=== PATIENT | female | born 1975 | race Caucasian/White ===

== ENCOUNTER 2023-09-09 12:50 | Emergency (ER) | payer OTHER, SELFPAY ==
[2023-09-09 12:55] VITALS: BP 152/93
[2023-09-09 13:16] LABS: % Basophils 1.3 % (0-2); % Eosinophils 3.3 % (0-6); % Immature Granulocytes 0.4 % (0-0.5); % Lymphocytes 21.8 % (20.5-51.1); % Neutrophils 64.2 % (42.2-75.2); Absolute Basophils 0.1 10^3/uL (0-0.2); Absolute Eosinophils 0.2 10^3/uL (0-0.7); Absolute Monocytes 0.4 10^3/uL (0.1-0.6); Absolute Neutrophils 3.1 10^3/uL (1.4-6.5); Hematocrit 37.2 % (37.0-47.0); Hemoglobin 13.3 g/dL (12.0-16.0); Mean Corp Hgb Conc. 35.8 g/dL (33.0-37.0); Mean Corpuscular Hgb 31.4 pg (27.0-31.0); Mean Corpuscular Volume 87.7 fL (81.0-99.0); Mean Platelet Volume 9.9 fL (7.4-10.4); Nucleated Red Blood Cells % 0 %; Platelet Count 168 10^3/uL (130-400); Red Blood Cell Count 4.24 10^6/uL (4.20-5.40); Red Cell Dist. Width 12.8 % (11.5-14.5); White Blood Cell Count 4.8 10^3/uL (4.8-10.8)
[2023-09-09 13:38] LABS: HCG, Serum Qualitative Screen Negative
[2023-09-09 13:49] LABS: ALT (SGPT) 36 U/L (0-35); AST (SGOT) 29 U/L (14-36); Albumin 3.9 g/dl (3.5-5.0); Alkaline Phosphatase 68 U/L (38-126); Blood Urea Nitrogen 8 mg/dl (7-17); Calcium 9.2 mg/dl (8.4-10.2); Carbon Dioxide 21 mmol/L (22-30); Chloride 104 mmol/L (98-107); Glucose 100 mg/dl (70-99); Sodium 136 mmol/L (135-145); Total Bilirubin 0.4 mg/dl (0.2-1.3); Total Protein 6.9 g/dl (6.3-8.2); eGFR > 60.00
--- NOTE | 2023-09-09 14:51 | ED.GENMED ---
History of Present Illness
General
Chief Complaint: Breathing Problem
Source: patient
Time Seen by Provider: 09/09/23 14:25
Travel History
Have you had any contact with someone who has COVID-19?: Yes
Comment: covid+
Do you have any symptoms of coronavirus? Fever > 100 degrees, chills, cough, shortness of breath, sore throat, loss of taste or smell, muscle aches, or headache?: Yes
Symptoms:: covid+
History of Present Illness
History of Present Illness:
48-year-old female presents to the emergency room complaining of sore throat, headache, loss of taste and smell, subjective shortness of breath. Patient began feeling unwell about 4 to 5 days ago. Patient had a fever yesterday but no fever today.
She does not feel your symptoms are improving. She called her family doctor because she measured her oxygen level with a home pulse oximeter and found it to be 88%.
Past History
Past History
ED Past Medical History: HTN and Other (Migraines)
ED Past Surgical History: Gynecological (D&C, tubal)
Social History
Tobacco: Non-smoker
Alcohol: None
Personal:
Living: with family
Phy Exam
Physical Exam
Physical Exam:
General: Awake, Alert, Oriented X3. No acute distress.
Vitals: unremarkable
Head: Atraumatic
Eyes: Pupils equal, EOMI
Throat: Airway intact, no exudates
Neck: Trachea midline
Lungs: Clear and equal b/l
Heart: Regular rate, no murmurs
Abd: Soft, Nontender, No pulsatile mass
Neuro: Nonfocal
Skin: Warm, dry, no rash
Extremities: pulses equal b/l, no edema
Scores
Heart Failure Risk
Heart Failure Risk Score: Not Applicable
Course
Orders/Labs/Results
Orders:
Orders
09/09/23 12:59
Electrocardiogram (*1) Urgent
Reason for Study: Other
Other Reason for Exam: Respiratory Distress
EKG- Treatment ONCE
09/09/23 13:04
Test Result ONCE
09/09/23 13:09
Complete Blood Count/With Diff Urgent
Comprehensive Metabolic Panel Urgent
HCG, Serum Qualitative Screen Urgent
Abnormal Lab Results
09/09/23
13:09
MCH 31.4 H pg
(27.0-31.0)
Absolute Lymphs (auto) 1.0 L 10^3/uL
(1.2-3.4)
Carbon Dioxide 21 L mmol/L
(22-30)
Creatinine 0.5 L mg/dL
(0.6-1.0)
Glucose 100 H mg/dl
(70-99)
ALT 36 H U/L
(0-35)
09/09/23 13:09
09/09/23 13:09
Vital Signs
Initial and Last Documented VS:
Initial Vital Signs
Temp Pulse Resp BP Pulse Ox
98.5 F 97 16 152/93 98
09/09/23 12:55 09/09/23 12:55 09/09/23 12:55 09/09/23 12:55 09/09/23 12:55
Last Documented Vital Signs
Temp Pulse Resp BP Pulse Ox
98.5 F 97 16 152/93 98
09/09/23 12:55 09/09/23 12:55 09/09/23 12:55 09/09/23 12:55 09/09/23 12:55
MDM/Problems Addressed
Differential Diagnosis Includes:
COVID, anemia pneumonitis
MDM/Problems Addressed:
Patient has normal pulse ox here. She looks comfortable. She is tolerating oral intake. She is still window for Paxlovid. We will initiate as patient has no contraindications.
*Pulse Oximetry
Patient hypoxic: no
*Critical Care Note
Total Time (30-74mins, 75-104mins- exclusive of procedures): Not Applicable
ED Attending Note
-
Portions of this chart may have been created with voice recognition software.� Occasional wrong word or��sound alike� substitutions may have occurred due to the inherent limitations of voice recognition software.
Discharge Plan
Departure
Patient Disposition: Home (Routine Discharge)
Date of Disposition: 09/09/23
Time of Disposition: 14:51
Patient with high blood pressure during this ER visit?: Yes
Condition: Good
Discharge Problem:
COVID-19
Instructions: COVID-19 (DC)
Prescriptions:
New
Paxlovid 300 mg (150 mg x 2)-100 mg tablets,dose pack
See Rx Instructions .ROUTE .COMPLEX Qty: 30 0RF
Rx Instructions:
take TWO 150 mg tablets of nirmatrelvir with ONE 100 mg tablet of ritonavir twice daily for 5 days
No Action
esomeprazole magnesium 40 mg Capsule,Delayed Release(Dr/Ec)
40 mg PO DAILY
Referrals:
Ken Roberts MD [Family Provider] -
Interventions
Interventions:
*Risk Screen - Suicide Last Done: 09/09/23 12:55
*General Assessment Last Done: 09/09/23 12:55
*Neglect/Abuse Screening Last Done: 09/09/23 12:55
== END 2023-09-09 15:09 | disposition home or self-care (01) ==
LOC: EMR 12:50
PROVIDERS: Student in an Organized Health Care Education/Training Program; EMERGENCY PHYSICIAN Emergency Medicine; FAMILY PHYSICIAN Internal Medicine
DX: U07.1 COVID-19 (principal); I10 Essential (primary) hypertension
CPT/HCPCS: 99284; 80053; 84703; 85025; 93005

== ENCOUNTER 2024-07-15 07:12 | Emergency (ER) | payer SELFPAY ==
[2024-07-15] VITALS (7 sets, daily range): BP systolic 120–149; BP diastolic 81–97; BMI 23.5
--- NOTE | 2024-07-15 07:50 | ED.GENMED ---
History of Present Illness
General
Chief Complaint: Abdominal Pain
Source: patient
Time Seen by Provider: 07/15/24 07:41
History of Present Illness
History of Present Illness:
49-year-old female presenting to the emergency department for evaluation of lower abdominal pain that began this morning around 5 AM described to be a constant aching/cramping sensation with intermittent sharper cramping episodes, worse within the
left lower quadrant but radiating across the lower abdomen and also stating she feels a little bit of pain in the rectal area accompanied with loose stool, blood intermixed with the stool, nausea and inability to eat or drink anything this morning.
Patient did not take anything for symptoms prior to arrival. Denies any history of similar she notes that she had a colonoscopy in either 2019 or 2020 and reports this was an unremarkable study. She does note a gluten sensitivity. Surgical
history noncontributory.
Past History
Past History
ED Past Medical History: Other (Migraines)
ED Past Surgical History: Gynecological (D&C, tubal)
Social History
Tobacco: Non-smoker
Alcohol: None
Drug: None
Personal:
Living: with family
Review of Systems
Review of Systems
All Other Systems: ROS reviewed and negative except as documented in HPI and ROS
Phy Exam
Physical Exam
Physical Exam:
GENERAL: Alert , tearful and appears uncomfortable. Patient attempted to have another bowel movement while in the ER and there were a few drops of blood within the toilet, no stool
EYE: clear conjunctiva b/l
HEAD: NCAT
ENT: o/p clr, mmm.
CARDIAC: Regular rate and rhythm .
LUNGS: Clear breath sounds bilaterally, no acute respiratory distress, no wheezes/rales/rhonchi
ABDOMEN: Soft, generalized tenderness across the lower abdomen but worse within the left lower quadrant, no r/g, no cvat, negative Alicia sign, no tenderness at McBurney's point
NEUROLOGICAL: Alert and oriented
SKIN: Warm and dry, skin intact.
MUSCULOSKELETAL: well perfused.
PSYCH: Normal and appropriate interaction.
Scores
Heart Failure Risk
Heart Failure Risk Score: Not Applicable
Heart Score for Chest Pain Patients
STEMI patient?: Not applicable
Withdrawal Assessment of Alcohol
Withdrawal Assessment Completed?: Not applicable
Course
Orders/Labs/Results
Orders:
Orders
07/15/24 07:49
CT Abd/pelvis W Iv Cont Urgent
Comment:
Reason For Exam: diffuse lower abd pain, worse LLQ
0.9% Sodium Chloride 1000 ml [Nss] 1,000 ml IV BOLUS
Morphine Sulfate 4 mg IV NOW STA
Ondansetron Injectable [Zofran] 4 mg IV NOW STA
Test Result ONCE
07/15/24 08:08
Type+Screen Urgent
Complete Blood Count/With Diff Urgent
Comprehensive Metabolic Panel Urgent
HCG, Serum Qualitative Screen Urgent
Lipase Urgent
07/15/24 08:59
ABO2 Routine
BBK Wristband Number:
Associate notified that ABO2 has been ordered: [id number]
Date: 07/15/24
Time: 09:01
Floating Derrick Operator ID: [id number]
07/15/24 10:01
HYDROmorphone [Dilaudid] 0.5 mg IV NOW STA
07/15/24 10:23
STOOL [C difficile Antigen & Toxins] Urgent
THONY Source: Feces/Stool
Specimen Description:
Stool Culture Urgent
THONY Source: Feces/Stool
Specimen Description:
Abnormal Lab Results
07/15/24
08:08
WBC 12.0 H 10^3/uL
(4.8-10.8)
MCHC 32.3 L g/dL
(33.0-37.0)
MPV 10.9 H fL
(7.4-10.4)
Absolute Neuts (auto) 10.2 H 10^3/uL
(1.4-6.5)
Absolute Lymphs (auto) 1.0 L 10^3/uL
(1.2-3.4)
Absolute Monos (auto) 0.7 H 10^3/uL
(0.1-0.6)
Neutrophils % 84.7 H %
(42.2-75.2)
Lymphocytes % 8.1 L %
(20.5-51.1)
Glucose 109 H mg/dl
(70-99)
AST 57 H U/L
(14-36)
ALT 79 H U/L
(0-35)
07/15/24 08:08
07/15/24 08:08
Vital Signs
Initial and Last Documented VS:
Initial Vital Signs
Temp Pulse Resp BP Pulse Ox
97.6 F 89 18 148/97 100
07/15/24 07:14 07/15/24 07:14 07/15/24 07:14 07/15/24 07:14 07/15/24 07:14
Last Documented Vital Signs
Temp Pulse Resp BP Pulse Ox
97.6 F 80 18 145/95 97
07/15/24 07:14 07/15/24 10:00 07/15/24 07:14 07/15/24 08:12 07/15/24 10:00
MDM/Problems Addressed
Differential Diagnosis Includes:
Diverticulitis, colitis, infectious diarrhea, IBD, pancreatitis, appendicitis
MDM/Problems Addressed:
49-year-old female presenting to the ER for evaluation of generalized abdominal cramping that started at 5 AM accompanied with diarrhea, small hematochezia and nausea. Currently appears uncomfortable. Abdominal exam reveals tenderness within the
left lower quadrant. Diverticulitis/diverticular bleed thought to be the most likely diagnosis. Labs and CT imaging ordered. Will treat symptoms with morphine for pain control, Zofran for nausea and IV fluids. Reassessment following
*Radiology
Radiology exam reviewed: radiology read reviewed
*Pulse Oximetry
Patient hypoxic: no
*Critical Care Note
Total Time (30-74mins, 75-104mins- exclusive of procedures): Not Applicable
Data Reviewed
Review of Other/Old Records Reveals: Radiology Studies
Source: patient
Comment
Comment:
Patient had refused morphine as she states it makes her feel loopy. On reevaluation she is still noting pain. I explained why I wanted to avoid Toradol given her reported bleeding. She is amenable to 1/2 mg of Dilaudid for pain control. Awaiting
CT scan results.
Patient Management
Social determinants of health affecting care: Living situation and Strong social support
Escalation/DeEscalation of care consider admission/obs:
Patient evaluated for an extended period of time following the half milligram of Dilaudid IV and she is feeling significantly improved. She was unfortunately unable to provide a stool sample prior to discharge. Patient will follow-up with primary
care provider for further evaluation. Aware of return precautions to the ER including worsening pain, fevers or any other concerns.
ED Attending Note
-
Portions of this chart may have been created with voice recognition software.� Occasional wrong word or��sound alike� substitutions may have occurred due to the inherent limitations of voice recognition software.
Discharge Plan
Departure
Patient Disposition: Home (Routine Discharge)
Date of Disposition: 07/15/24
Time of Disposition: 12:15
Patient with high blood pressure during this ER visit?: Yes
Discharge Problem:
Colitis
Instructions: Colitis (DC)
Prescriptions:
New
oxycodone 5 mg tablet
5 mg PO BID PRN (Reason: Pain) Qty: 6 0RF
ondansetron 4 mg tablet,disintegrating
4 mg PO TIDPRN PRN (Reason: nausea/vomiting) Qty: 10 0RF
No Action
esomeprazole magnesium 40 mg Capsule,Delayed Release(Dr/Ec)
40 mg PO DAILY
lisinopril 10 mg Tablet
10 mg PO DAILY
Referrals:
Ken Roberts MD [Family Provider] -
Interventions
Interventions:
*Risk Screen - Suicide Last Done: 07/15/24 07:14
*General Assessment Last Done: 07/15/24 07:14
*Neglect/Abuse Screening Last Done: 07/15/24 07:14
Discharge Date and Time
Print Language: THAI
[2024-07-15] MEDS: NSS 1000 IV (08:08)
[2024-07-15] MEDS: ZOFRAN 4 MG IV (08:09)
[2024-07-15 08:31] LABS: % Basophils 0.7 % (0-2); % Eosinophils 0.3 % (0-6); % Immature Granulocytes 0.3 % (0-0.5); % Lymphocytes 8.1 % (20.5-51.1); % Monocytes 5.9 % (1.7-9.3); % Neutrophils 84.7 % (42.2-75.2); Absolute Basophils 0.1 10^3/uL (0-0.2); Absolute Monocytes 0.7 10^3/uL (0.1-0.6); Absolute Neutrophils 10.2 10^3/uL (1.4-6.5); Hematocrit 43.3 % (37.0-47.0); Mean Corp Hgb Conc. 32.3 g/dL (33.0-37.0); Mean Corpuscular Hgb 29.5 pg (27.0-31.0); Mean Corpuscular Volume 91.4 fL (81.0-99.0); Mean Platelet Volume 10.9 fL (7.4-10.4); Nucleated Red Blood Cells % 0 %; Platelet Count 187 10^3/uL (130-400); Red Blood Cell Count 4.74 10^6/uL (4.20-5.40); Red Cell Dist. Width 13.1 % (11.5-14.5)
[2024-07-15 08:40] LABS: HCG, Serum Qualitative Screen Negative
[2024-07-15 08:42] LABS: ALT (SGPT) 79 U/L (0-35); AST (SGOT) 57 U/L (14-36); Alkaline Phosphatase 65 U/L (38-126); Blood Urea Nitrogen 14 mg/dl (7-17); Calcium 9.7 mg/dl (8.4-10.2); Carbon Dioxide 28 mmol/L (22-30); Chloride 102 mmol/L (98-107); Estimated Creatinine Clearance 98 ml/min; Glucose 109 mg/dl (70-99); Lipase 98 U/L (23-300); Potassium 4.8 mmol/L (3.5-5.1); Sodium 142 mmol/L (135-145); Total Bilirubin 0.5 mg/dl (0.2-1.3); Total Protein 8.1 g/dl (6.3-8.2); eGFR > 60.00
[2024-07-15] MEDS: DILAUDID 0.5 MG IV (10:11)
== END 2024-07-15 13:20 | disposition home or self-care (01) ==
LOC: EMR 07:12
PROVIDERS: Physician Assistant Medical; EMERGENCY PHYSICIAN Student in an Organized Health Care Education/Training Program; FAMILY PHYSICIAN Internal Medicine
DX: K52.9 Noninfective gastroenteritis and colitis, unspecified (principal)
CPT/HCPCS: 96374; 96375; 96361; 99284; 74177; 80053; 83690; 84703; 85025; 86850; 86900; 86901; Q9967

== ENCOUNTER 2024-12-27 18:27 | Day surgery (SDC) | payer OTHER, SELFPAY ==
[2024-12-27] VITALS (15 sets, daily range): BP systolic 113–135; BP diastolic 80–94; BMI 22.8; BMI 22.4
[2024-12-27 09:09] LABS: % Basophils 0.7 % (0-2); % Eosinophils 0.7 % (0-6); % Immature Granulocytes 0.3 % (0-0.5); % Lymphocytes 14.1 % (20.5-51.1); % Monocytes 9.8 % (1.7-9.3); % Neutrophils 74.4 % (42.2-75.2); Absolute Basophils 0.1 10^3/uL (0-0.2); Absolute Eosinophils 0.1 10^3/uL (0-0.7); Absolute Lymphocytes 1.3 10^3/uL (1.2-3.4); Absolute Monocytes 0.9 10^3/uL (0.1-0.6); Absolute Neutrophils 6.8 10^3/uL (1.4-6.5); Hematocrit 41.4 % (37.0-47.0); Hemoglobin 14.1 g/dL (12.0-16.0); Mean Corp Hgb Conc. 34.1 g/dL (33.0-37.0); Mean Corpuscular Hgb 30.3 pg (27.0-31.0); Mean Corpuscular Volume 88.8 fL (81.0-99.0); Mean Platelet Volume 10.5 fL (7.4-10.4); Nucleated Red Blood Cells % 0 %; Platelet Count 175 10^3/uL (130-400); Red Blood Cell Count 4.66 10^6/uL (4.20-5.40); Red Cell Dist. Width 13.4 % (11.5-14.5); White Blood Cell Count 9.2 10^3/uL (4.8-10.8)
[2024-12-27 09:19] LABS: D-Dimer 0.33 ug/mlFEU (0.00-0.50)
[2024-12-27 09:27] LABS: ALT (SGPT) 23 U/L (0-35); AST (SGOT) 19 U/L (14-36); Albumin 4.5 g/dl (3.5-5.0); Alkaline Phosphatase 71 U/L (38-126); Blood Urea Nitrogen 9 mg/dl (7-17); Calcium 9.1 mg/dl (8.4-10.2); Carbon Dioxide 26 mmol/L (22-30); Chloride 106 mmol/L (98-107); Glucose 75 mg/dl (70-99); Potassium 3.8 mmol/L (3.5-5.1); Sodium 140 mmol/L (135-145); Total Protein 7.7 g/dl (6.3-8.2); eGFR > 60.00
[2024-12-27 09:29] LABS: Troponin I < 0.012 ng/ml
--- NOTE | 2024-12-27 10:28 | ED.GENMED ---
History of Present Illness
General
Chief Complaint: Chest Pain
Source: patient, records (Have been requested from [place]) and family
Exam Limitations: none
Time Seen by Provider: 12/27/24 09:47
Nursing documentation reviewed up to this point in time: agreed with
History of Present Illness
History of Present Illness:
49-year-old female presents with chest pain, onset a few days ago burning in her chest into her neck and head, with chills, no vomiting, seen at [facility] yesterday had what sounds like a CAT scan of her chest to cardiac enzymes discharged
to home she states the pain is worse when she moves no goes into her head, different than her reflux, patient tells me she has an empty sella, was seen by sound like a neurosurgeon at [place] and may need to have a LOSS PREVENTION/SAFETY DISTRICT MANAGER shunt? Tells me she gets a lot
of headaches,
Past History
Past History
ED Past Medical History: GERD, Other (Migraines, pleurisy) and Other (Empty sella syndrome); Negative Arrthythmia
ED Past Surgical History: Gynecological (D&C, tubal); Negative Cholecystectomy
Social History
Tobacco: Non-smoker
Alcohol: None
Drug: None
Personal:
Living: with family
Employment: Employed
Review of Systems
Review of Systems
All Other Systems: Not applicable
Constitutional: Reports chills; Denies fever
EENT: Reports no symptoms
Respiratory: Denies cough
Cardiac: Reports chest pain
ABD/GI: Reports no symptoms; Denies abdominal pain, nausea or vomiting
: Reports no symptoms
Musculoskeletal: Reports muscle pain, muscle stiffness, neck pain and back pain
Phy Exam
Physical Exam
Physical Exam:
Physical Exam
General: 49 female looks uncomfortable but nontoxic
Neck: No jaundice
Heart: s1/s2 regular rate and rhythm, no murmur. equal radial pulses.
Lungs: no acute respiratory distress. clear bilaterally
Abdomen: Nontender
Neuro: alert and oriented. no focal neurological deficits
Skin: no rash
Psychiatric: well kept. interactive and cooperative
Extremities: no edema. no calf tenderness.
Scores
Heart Score for Chest Pain Patients
STEMI patient?: No
History: Slightly or Non-Suspicious
ECG: Normal
Age: >45 - <65 years
Risk Factors: 1 or 2 Risk Factors
Troponin: </= Normal Limit
Heart Score for Chest Pain Patients: 2
Heart Score Risk: 2.5% MACE over next 6 weeks
Course
Orders/Labs/Results
Orders:
Orders
12/27/24 08:43
Electrocardiogram (*1) Urgent
Reason for Study: Chest Pain
EKG- Treatment ONCE
12/27/24 08:57
C-Reactive Protein Urgent
Comment: ADD ON
CMP [Comprehensive Metabolic Panel] Urgent
Complete Blood Count/With Diff Urgent
Creatine Phosphokinase Urgent
Comment: ADD ON
D-Dimer Urgent
Erythrocyte Sed Rate Urgent
Comment: ADD ON
Lipase Urgent
Comment: ADD ON
Troponin I Urgent
12/27/24 10:17
Mag Hydrox/Al Hydrox/Simeth [Maalox] 30 ml Phenobarb/Hyoscy/Atropine/Scop [] 10 ml PO NOW
Pantoprazole [Protonix IV] 40 mg IV NOW STA
12/27/24 10:18
Add On- LAB Urgent
Tests Added?: lipase
diazePAM [Valium Injection] 5 mg IV NOW STA
12/27/24 10:25
CR Chest - 2 Views Urgent
Comment:
Reason For Exam: cp
12/27/24 10:29
Add On- LAB Urgent
Tests Added?: cpk
12/27/24 10:35
CT Head W/o Iv Contrast Urgent
Comment:
Reason For Exam: headache hydroclephalus
Mag Hydrox/Al Hydrox/Simeth [Maalox] 30 ml .ROUTE .STK-MED ONE
Phenobarb/Hyoscy/Atropine/Scop [] 10 ml .ROUTE .STK-MED ONE
12/27/24 12:21
HYDROmorphone [Dilaudid] 1 mg IV NOW STA
12/27/24 12:23
NEUROLOGY CONSULT Urgent
Consulting Provider: Abdiel Lizarraga
Was physician already notified: Yes
12/27/24 14:39
Diphenhydramine [Benadryl] 25 mg IV NOW STA
Metoclopramide [Reglan] 10 mg IV NOW STA
12/27/24 15:02
Add On- LAB Urgent
Tests Added?: esr/crp
12/27/24 15:18
Bupivacaine Pf 0.5% [Sensorcaine 0.5% Single Dose] 30 ml INJ OR ONE
Triamcinolone Injectable [Kenalog-40] 40 mg IM NOW STA
12/27/24 16:37
Bupivacaine Pf 0.5% [Sensorcaine 0.5% Single Dose] 30 ml .ROUTE .STK-MED ONE
Abnormal Lab Results
12/27/24
08:57
MPV 10.5 H fL
(7.4-10.4)
Absolute Neuts (auto) 6.8 H 10^3/uL
(1.4-6.5)
Absolute Monos (auto) 0.9 H 10^3/uL
(0.1-0.6)
Lymphocytes % 14.1 L %
(20.5-51.1)
Monocytes % 9.8 H %
(1.7-9.3)
ESR 23 H mm/hour
(0-20)
C-Reactive Protein 140.30 H mg/L
(0.0-10.00)
05/18/25 08:57
12/27/24 08:57
Vital Signs
Initial and Last Documented VS:
Initial Vital Signs
Temp Pulse Resp BP Pulse Ox
98.3 F 100 16 131/93 97
12/27/24 08:43 12/27/24 08:43 12/27/24 08:43 12/27/24 08:43 12/27/24 08:43
Last Documented Vital Signs
Temp Pulse Resp BP Pulse Ox
98.3 F 115 25 126/90 100
12/27/24 08:43 12/27/24 15:15 12/27/24 15:15 12/27/24 15:00 12/27/24 15:15
*Radiology
Radiology exam reviewed: radiology read reviewed
*Pulse Oximetry
Patient hypoxic: no
*EKG
Interpreted by ED Provider?: Yes
Interpretation: normal
Comparison EKG: no comparison EKG present
Heart Rate: 78
Rate: normal
Rhythm: sinus
Ischemia: non-specific ST changes
*Occupational Health Nursing Director Interpretation
Rate: normal
Interpretation: normal
Heart Rate: 78
Rhythm: sinus
*Critical Care Note
Total Time (30-74mins, 75-104mins- exclusive of procedures): Not Applicable
Update Note
Update Note:
Update etiology of symptoms not entirely clear looks like PE has been ruled out yesterday and today 3 days of pain with an undetectable troponin will add lipase and CPK does have some headache unclear what her neurologic history is states she has an
empty sella syndrome, check CT of the head, not sure if this would explain all her symptoms or not
CT of the head noted, patient is likely a 10 out of 10 headache will try to get her comfortable unclear if she has papilledema by my evaluation, I did not dilate her, will ask for neurology consultation
Update, seen by neurology pain blocks ordered with some relief, inflammatory markers particularly CRP elevated neurologist recommended admission for steroids possible giant cell arteritis which sounds reasonable hospitalist notified
ED Attending Note
-
Portions of this chart may have been created with voice recognition software.� Occasional wrong word or��sound alike� substitutions may have occurred due to the inherent limitations of voice recognition software.
Discharge Plan
Departure
Patient Disposition: Admit
Date of Disposition: 12/27/24
Time of Disposition: 16:53
Admit to: Med/Surg
Presentation/result/management discussed w/ accepting MD/DO: Hospitalist
Patient with high blood pressure during this ER visit?: No
Condition: Fair
Discharge Problem:
Acute intractable headache
Prescriptions:
No Action
esomeprazole magnesium 40 mg Capsule,Delayed Release(Dr/Ec)
40 mg PO DAILY
lisinopril 10 mg Tablet
10 mg PO DAILY
oxycodone 5 mg tablet
5 mg PO BID PRN (Reason: Pain) Qty: 6 0RF
ondansetron 4 mg tablet,disintegrating
4 mg PO TIDPRN PRN (Reason: nausea/vomiting) Qty: 10 0RF
Referrals:
Ken Roberts MD [Family Provider] -
Interventions
Interventions:
*Risk Screen - Suicide Last Done: 12/27/24 08:43
*General Assessment Last Done: 12/27/24 10:29
*Neglect/Abuse Screening Last Done: 12/27/24 08:43
*ED- Fall Risk Assessment Last Done: 12/27/24 10:29
*ED COVID-19 Vaccine History Last Done: 12/27/24 10:29
ED- Cardiac Assessment Last Done: 12/27/24 10:30
Discharge Date and Time
Print Language: ANGOLAN
[2024-12-27] MEDS: MAALOX 40 PO (10:47)
[2024-12-27] MEDS: VALIUM INJECTION 5 MG IV (10:48)
[2024-12-27] MEDS: PROTONIX IV 40 MG IV (10:48)
[2024-12-27 10:58] LABS: Creatine Phosphokinase 42 U/L (30-135); Lipase 51 U/L (23-300)
[2024-12-27] MEDS: DILAUDID 1 MG IV (12:27)
--- NOTE | 2024-12-27 13:33 | EDRN ---
Pt stated on ambulating to BR was sl dizzy. Pt was assisted w/ this RN and spouse. On return to stretcher pt stated her pain w/ ambulation in her head, neck and chest increased to 9/10 w/ the movement.
--- NOTE | 2024-12-27 14:52 | EDRN ---
Neurologist in room w/pt at this time.
[2024-12-27] MEDS: BENADRYL 25 MG IV (14:53)
[2024-12-27] MEDS: REGLAN 10 MG IV (14:53)
[2024-12-27 15:22] LABS: Erythrocyte Sed Rate 23 mm/hour (0-20)
--- NOTE | 2024-12-27 15:22 | CON.NEURO ---
Addendum entered and electronically signed by Abdiel Lizarraga MD 12/27/24 17:35:
for concern of temporal arteritis start ASA 81
given headache with new features, check brain MRI
not sure what to make of the burning pain right temporal/anterior neck/upper chest
she does report successful numbing of the scalp from occipital nerve block but headache persists /
Original Note:
Neuro Assessment/Plan
Assessment
migraine, chronic daily headache, with change in headache quality. given reglan/benadryl.
with temporal artery tenderness, concern for temporal arteritis
ESR 23, CRP 140
methylprednisolone allergy, start decadron 4 mg IV q12 hr
temporal artery biopsy, spoke to Dr Luis, NPO at midnight
occipital neuralgia, performed occipital nerve block, SPG block at bedside - she has methylprednisolone allergy, Kenalog in a different steroid class
Plan
decadron 4 mg IV q12 hr
temporal artery biopsy, NPO at midnight
Consultation
Order
Date of Consultation: 12/27/24
Requesting Provider: Robert Kennedy
Reason for Consult: headache
Subjective/Objective
Subjective Data
Date of Service: December 27, 2024
49 year old woman presenting with headache. Her usual headache is right temporal migraine, throbbing, 24/7, photophobia
presents with 2 days headache change in character, now throbbing/burning right temporal with burning anterior neck/chest. +photophobia, +nausea.
history of transient vision loss right eye x15 minutes; history of empty sella, and stenosis of cerebral venous sinus; had catheterization [facility] to measure venous pressure and didn't need a stent
Objective Data
Vital Signs
Temp Pulse Resp BP Pulse Ox
36.8 C 115 25 126/90 100
12/27/24 08:43 12/27/24 15:15 12/27/24 15:15 12/27/24 15:00 12/27/24 15:15
Lab Results
12/27/24 08:57
12/27/24 08:57
Sodium 140 mmol/L (135-145) 12/27/24 08:57
Potassium 3.8 mmol/L (3.5-5.1) 12/27/24 08:57
BUN 9 mg/dl (7-17) 12/27/24 08:57
Glucose 75 mg/dl (70-99) 12/27/24 08:57
Calcium 9.1 mg/dl (8.4-10.2) 12/27/24 08:57
Patient Allergies
methylprednisolone Allergy (Severe, Verified 07/15/24 07:13)
Tongue Swelling
amitriptyline Allergy (Intermediate, Verified 07/15/24 07:13)
Tongue Swelling
metoprolol Allergy (Intermediate, Verified 07/15/24 07:13)
Tongue Swelling
Physical Exam
-
AAOx3, speech clear, language intact
no papilledema
VFF, EOMI, face symmetric
full strength b/l UE/LE
sensation intact to touch, no allodynia
tender right temporal
cervical rotation is symmetric; cervical muscle spasms palpated without subluxation. tender bilateral occipital nerves; radiating on the right
Medications
-
Active Medications
Generic Name Dose Route Start Last Admin
Trade Name Freq PRN Reason Stop Dose Admin
Bupivacaine HCl 30 ml 12/27/24 15:18
Bupivacaine 0.5% (Pf) 30 Ml Single Dose Vial INJ 12/27/24 15:19
OR ONE
Triamcinolone Acetonide 40 mg 12/27/24 15:18
Triamcinolone 40 Mg/Ml (Kenalog-40) 1 Ml Vial IM 12/27/24 15:19
NOW STA
Home Medications
�Medication �Instructions �Recorded
esomeprazole magnesium 40 mg 40 mg PO DAILY Gastrointestinal 02/13/23
capsule,delayed release Issue
lisinopril 10 mg tablet 10 mg PO DAILY Blood Pressure 07/15/24
ondansetron 4 mg disintegrating 4 mg PO TIDPRN PRN nausea/vomiting 07/15/24
tablet #10 tabs
oxycodone 5 mg tablet 5 mg PO BID PRN Pain #6 tabs 07/15/24
[2024-12-27] MEDS: KENALOG-40 40 MG IM (16:30)
[2024-12-27] MEDS: SENSORCAINE 0.5% SINGLE DOSE 30 ML INJ (16:30)
--- NOTE | 2024-12-27 16:49 | EDRN ---
Neurologist just performed nerve block on pt.
--- NOTE | 2024-12-27 16:51 | EDRN ---
Dr. Lizarraga, neurologist, just performed nerve block to block pt's head pain at this time.
--- NOTE | 2024-12-27 16:56 | EDRN ---
Post nerve block by Neurologist Dr. Lizarraga, pt now states pain is not as 'heavy' and 01/19.
--- NOTE | 2024-12-27 17:31 | HPS.HSE ---
Family Physician
-
Family Physician: Ken Roberts MD
Chief Complaint
-
Chest pain, headache
History of Present Illness
Patient is 49 years old with history of anxiety, back pain, chondral costal junction syndrome, chronic pain syndrome, epigastric pain, hypertension, hemorrhoid, anemia, vitamin B12 deficiency ,GERD, empty sella syndrome who came to [place] [facility]
with chest pain and migraine.
Chest pain started on Saturday and patient had substernal pressure-like chest pain overnight, then Saturday patient went to [facility] where initial blood work including troponin came back negative and CT chest came back negative for pulmonary
embolism, patient was offered admission at [facility] but she preferred to go home.
At home around 6 PM patient started to have pain in the neck and headaches, came today to [facility] ER, seen already by neurology in the ER status post occipital nerve block and patient was feeling better afterward.
Neurology recommending admission overnight and plan for right temporal artery biopsy in a.m.
Patient seen and examined at bedside, family at bedside, still have chest pain but improved headache otherwise denies shortness of breath, abdominal pain, nausea vomiting, diarrhea, fever but stated that she has some chills.
Patient was admitted under hospitalist.
Medical History
Past Medical History
Past Medical History: Reports Other
Additional Past Medical History:
anxiety, back pain, chondral costal junction syndrome, chronic pain syndrome, epigastric pain, hypertension, hemorrhoid, anemia, vitamin B12 deficiency ,GERD, empty sella syndrome
Past Surgical History: Reports Other
Additional Past Surgical History:
Colonoscopy, tubal ligation
Social History
Tobacco: Non-smoker
Alcohol: None
Drug: None
Family History
Family History: Diabetes and Hypertension
Allergies / Home Medications
Allergies reflects when Allergies were last updated in [email or web address].
Home Medications with original date entered in [email or web address]
Allergy/Medication List:
Allergies
Allergy/AdvReac Type Severity Reaction Status Date / Time
methylprednisolone Allergy Severe Tongue Verified 07/15/24 07:13
Swelling
amitriptyline Allergy Intermediate Tongue Verified 07/15/24 07:13
Swelling
metoprolol Allergy Intermediate Tongue Verified 07/15/24 07:13
Swelling
Home Medications
esomeprazole magnesium 40 mg capsule,delayed release 40 mg PO DAILY Gastrointestinal Issue 02/13/23
lisinopril 10 mg tablet 10 mg PO DAILY Blood Pressure 07/15/24
ondansetron 4 mg disintegrating tablet 4 mg PO TIDPRN PRN nausea/vomiting #10 tabs 07/15/24
oxycodone 5 mg tablet 5 mg PO BID PRN Pain #6 tabs 07/15/24
Review of Systems
-
A 12 point ROS was completed and negative except as noted: Yes
Constitutional: Reports Fatigue; Denies Fever, Weight Gain, Weight Loss or Sleep Disturbance
EENT: Reports Sore Throat; Denies Tearing, Mouth Pain, Mouth Swelling or Runny Nose
Respiratory: Denies Cough, Hemoptysis or Trouble Breathing
Cardiac: Reports Chest Pain; Denies Diaphoresis, Palpitations or Syncope
Abdomen/GI: Denies Abdominal Pain, Nausea, Vomiting, Diarrhea, Constipated, Bloody Stools or Black Stools
: Denies Dysuria, Frequency, Flank Pain, Incontinence, Difficulty Voiding, Urgency, Bleeding or Dark Urine
Musculoskeletal: Denies Joint Pain, Joint Swelling, Muscle Pain, Muscle Stiffness or Edema
Skin: Denies Itching or Rash
Neurological: Reports Headache and Weakness; Denies Dizzy or Numbness
Endocrine: Denies Polyuria, Polydipsia or Temp Intolerance
Hematologic/Lymphatic: Denies Bleeding, Swollen Glands or Bruising
Psych: Reports Calm; Denies Depression, Anxiety or Panic Disorder
Physical Exam
Vital Signs
Vital Signs
Temp Pulse Resp BP Pulse Ox
98.3 F 100 30 113/80 96
12/27/24 08:43 12/27/24 16:45 12/27/24 16:45 12/27/24 16:00 12/27/24 16:45
Physical Exam
General: Well Developed, Well Nourished, No Apparent Distress, Comfortable and Good Appetite; No Pain, Chills or Sweats
HEENT: NormoCephalic, Moist mucous membranes, Atraumatic, Good Dentition, PERRLA, Nose Appears Normal and Ears Appear Normal
Respiratory: Clear and Other (Chest wall tenderness)
Cardiac: S1/S2 and Regular Rhythm
Breast: Deferred by me
GI: Soft, Non Tender, Non Distended and Normal Bowel Sounds
Genito-urinary: Deferred by me
Musculoskeletal: No Clubbing, No Cyanosis and No Edema
Skin: Warm; No Rash, Jaundice, Ulcers, Lesions or Decubitus Ulcers
Neuro: Awake, Alert, Oriented, AO x 3, No Motor Deficits, Nonfocal/grossly intact and Cranial Nerves Intact
Hematologic/Lymphatic: No Lymphadenopathy
Psych: Calm
Laboratory Results
-
12/27/24 08:57
12/27/24 08:57
Laboratory Results
Total Bilirubin 1.0 mg/dl (0.2-1.3) 12/27/24 08:57
AST 19 U/L (14-36) 12/27/24 08:57
ALT 23 U/L (0-35) 12/27/24 08:57
Alkaline Phosphatase 71 U/L (38-126) 12/27/24 08:57
Troponin I < 0.012 ng/ml 12/27/24 08:57
Lipase 51 U/L (23-300) 12/27/24 08:57
Data Reviewed
-
Diagnostic Radiology: Report Reviewed by me
CT Scan: Report Reviewed by me
Medical Tests (Nuc Med, Echo, EKG etc): Report Reviewed by me
Lab Data: Labs Reviewed by me
Old Records: Reviewed
Impression/Plan
-
IMPRESSION:
49 years old with history of anxiety, back pain, chondral costal junction syndrome, chronic pain syndrome, epigastric pain, hypertension came to the ER with chest pain and migraine status post occipital nerve block by neurology in the ER and
neurology recommending IV Decadron, MRI brain and cervical spine, right temporal artery biopsy in a.m., n.p.o. after midnight.
Assessment/plan:
Musculoskeletal chest pain.
Increased with deep breathing and movement
Patient was at [facility] yesterday, troponin was negative.
D-dimer was normal but patient underwent CTA chest which came back negative for acute PE but shows minimal bibasilar segmental atelectasis.
Patient has history of chondrocostal junction syndrome.
Post troponin and D-dimer are negative at this time
Continue lidocaine patches.
Added muscle relaxant.
Toradol.
Acute headache syndrome.
History of migraine, seen by neurology.
Temporal artery tenderness and concern of temporal arteritis.
ESR 23, CRP 140
Patient status post occipital nerve block in the ER by neurology.
N.p.o. after midnight for right temporal artery biopsy in a.m.
History of GERD.
Continue omeprazole
History of hypertension.
Continue lisinopril
CODE STATUS: Full code
DVT prophylaxis: Lovenox
Diet: Regular diet
Family communication: Discussed with family at bedside.
Disposition: N.p.o. after midnight for right temporal artery biopsy tomorrow
Total time spent on today's encounter was 75 minutes which included time spent in counseling the patient/family regarding diagnosis and treatment plan as listed above, goals of care, and symptom management. Case was discussed with nursing staff,
specialists, and care coordinators/case management. All labs and imaging personally reviewed by me. Remainder the time spent in detailed review of previous records, lab data, imaging, and other medical provider documentation.
--- NOTE | 2024-12-27 18:20 | EDRN ---
repair technician in room w/ pt doing med rec at this time.
--- NOTE | 2024-12-27 18:20 | EDRN ---
Geno Landrum TRANSPLANTER [employer]CHID in room w/pt at this time.
[2024-12-27] MEDS: ASPIR LOW (ENTERIC COATED) 81 MG PO (19:45)
[2024-12-27] MEDS: DECADRON 4 MG IV (19:45)
[2024-12-27] MEDS: LOVENOX 40 MG SC (21:22)
--- NOTE | 2024-12-27 22:16 | PTCARENOTE ---
pt admitted to room 2243. Pt AAOx4, ST on monitor. pt ambulates in dependently in the room. C/O chest pain 4/10 when in sitting position and pain increased to 10/10 when lying flat on her back. Pt NPO after midnight. Pt oriented to room, call navarrete
in reach
[2024-12-28] VITALS (19 sets, daily range): BP systolic 108–129; BP diastolic 69–89
[2024-12-28 04:07] LABS: Hematocrit 39.5 % (37.0-47.0); Hemoglobin 13.6 g/dL (12.0-16.0); Mean Corp Hgb Conc. 34.4 g/dL (33.0-37.0); Mean Corpuscular Hgb 29.8 pg (27.0-31.0); Mean Corpuscular Volume 86.6 fL (81.0-99.0); Mean Platelet Volume 10.4 fL (7.4-10.4); Platelet Count 190 10^3/uL (130-400); Red Blood Cell Count 4.56 10^6/uL (4.20-5.40); Red Cell Dist. Width 12.9 % (11.5-14.5); White Blood Cell Count 11.6 10^3/uL (4.8-10.8)
[2024-12-28 04:32] LABS: Blood Urea Nitrogen 11 mg/dl (7-17); Calcium 9.4 mg/dl (8.4-10.2); Carbon Dioxide 22 mmol/L (22-30); Chloride 109 mmol/L (98-107); Estimated Creatinine Clearance 94 ml/min; Glucose 145 mg/dl (70-99); Magnesium 1.9 mg/dl (1.6-2.3); Potassium 4.4 mmol/L (3.5-5.1); Sodium 138 mmol/L (135-145); eGFR > 60.00
[2024-12-28 04:42] LABS: Troponin I < 0.012 ng/ml
[2024-12-28] MEDS: DECADRON 4 MG IV ×2 (05:11→16:51)
--- NOTE | 2024-12-28 08:11 | PTCARENOTE ---
Received patient this morning sitting up at the side of the bed. Denies any pain, stating she feels much better. Patient is aware that she is NPO, waiting for MRI and biopsy today.
--- NOTE | 2024-12-28 08:58 | CON.VAS ---
Addendum entered and electronically signed by Mike Ordonez III, MD 12/28/24 18:10:
This patient was seen and examined in collaboration with ANNE MARIE Calloway. I agree with the history and physical exam as well as the assessment and plan. I have the following additions:
Symptom constellation is described
Right-sided headaches
Temporal tenderness
Elevated inflammatory markers
Asked to perform temporal artery biopsy for diagnostic workup
Technical aspects of the procedure were discussed with the patient in detail. The benefits and rationale for this approach were discussed with her in detail. Operative risks were discussed with her in detail including but not limited to bleeding,
infection, wound healing complications and the possibility of negative biopsy result.
She expressed a clear understanding of our conversation and agrees to proceed with surgery as detailed above
Signed:
Mike Ordonez III, MD
Vascular Surgery
[facility]
Original Note:
Consultation
Consultation Request
Date/Time Consultation Performed: 12/28/24 9:00
Performing Provider: José Luis
Reason for Consultation: Headache/ GCA
Medical History
-
Chief Complaint: SHELDON/Chest pain
History of Present Illness:
49-year-old female with past medical history significant for anxiety, chondral costal junction syndrome, chronic pain syndrome, epigastric pain, hypertension,GERD, empty sella syndrome who presented to [place] ER yesterday with chest pain and
migraine. Chest pain that started Saturday and patient was seen in [facility]'s ER Saturday. Patient states blood work, troponin, chest CT all negative and patient was sent home. Last night she began with pain in the neck and head on both
sides. She presented to [facility] ER and was seen by the neurologist who ordered postoccipital nerve block. Patient felt significantly better after this. She was admitted overnight for temporal artery biopsy today. Vascular consult for
temporal artery biopsy.
Patient seen at bedside this a.m. with Dr. Ordonez. Patient complains of headache right greater than left. She states that she has had headache for about 4 years but in the last 24 hours it felt different and more severe. She does have some
tenderness over the right temporal artery. She states that she has been seeing a neurologist from [place]. She also has a history of transient vision loss to the right eye x 15 minutes, history of empty sella, stenosis of cerebral venous sinus; had
catheterization at [place] to measure venous pressure and did not need a stent at that time.
Past Medical History
Past Medical History: Other (anxiety, back pain, chondral costal junction syndrome, chronic pain syndrome, epigastric pain, hypertension, hemorrhoid, anemia, vitamin B12 deficiency ,GERD, empty sella syndrome)
Past Surgical History: Other (Colonoscopy, tubal ligation)
Social History
Tobacco: Non-Smoker
Alcohol: None
Drug: None
Family History
Family History: Diabetes and Hypertension
Allergies / Home Medications
Allergy/AdvReac Type Severity Reaction Status Date / Time
methylprednisolone Allergy Severe Tongue Verified 07/15/24 07:13
Swelling
amitriptyline Allergy Intermediate Tongue Verified 07/15/24 07:13
Swelling
metoprolol Allergy Intermediate Tongue Verified 07/15/24 07:13
Swelling
�Medication �Instructions �Recorded �Confirmed �Type
esomeprazole magnesium 40 mg 40 mg PO DAILY Gastrointestinal 02/13/23 12/27/24 History
capsule,delayed release Issue
lisinopril 10 mg tablet 10 mg PO DAILY Blood Pressure 07/15/24 12/27/24 History
acetaminophen 325 mg tablet 325 mg PO DAILYPRN PRN mild pain 12/27/24 12/27/24 History
ascorbic acid 30 mg-collagen, 1 tab PO DAILY Supplement 12/27/24 12/27/24 History
hydrolyzed 833.3 mg tablet
(Collagen Skin Renewal)
cyanocobalamin (vitamin B-12) 1,000 mcg PO DAILY Supplement 12/27/24 12/27/24 History
1,000 mcg tablet
ibuprofen 200 mg tablet 600 mg PO DAILYPRN PRN mild pain 12/27/24 12/27/24 History
therapeutic multivitamin 1 tab PO DAILY Supplement 12/27/24 12/27/24 History
Review of Systems
-
History Source: Patient
All other systems: Negative unless noted
Constitutional: Reports No Symptoms
EENT: Reports No Symptoms
Respiratory: Reports No Symptoms
Cardiac: Reports Chest Pain (resolved)
Vascular: Denies Leg Pain / Claudication
Abdomen/GI: Reports No Symptoms
: Reports No Symptoms
Musculoskeletal: Reports No Symptoms
Skin: Reports No Symptoms
Neurological: Reports Headache
Endocrine: Reports No Symptoms
Physical Exam
Vital Signs
Temp Pulse Resp BP Pulse Ox
97.6 F 112 20 116/83 96
12/28/24 06:55 12/28/24 08:00 12/28/24 06:55 12/28/24 06:56 12/28/24 06:56
Lab Results
12/28/24 03:59
12/28/24 03:59
Troponin I < 0.012 ng/ml 12/28/24 03:59
Physical Exam
General: No Apparent Distress
HEENT: Normocephalic and Atraumatic
Respiratory: Non Labored Respirations
Cardiac: Negative JVD
GI: Soft and Non Tender
Musculoskeletal: No Clubbing and No Cyanosis
Skin: Warm
Neuro: Awake, Alert and Oriented
Psych: Calm
Assessment / Plan
-
49-year-old female here with headache and possible giant cell arteritis
Vascular consult for temporal artery biopsy
Plan:
- N.p.o.
- TAB today
Data Reviewed
-
Labs: Labs Reviewed by me
[2024-12-28] MEDS: ZESTRIL 10 MG PO (09:06)
[2024-12-28] MEDS: ASPIR LOW (ENTERIC COATED) 81 MG PO (09:06)
[2024-12-28] MEDS: PROTONIX 40 MG PO (09:06)
--- NOTE | 2024-12-28 09:52 | PTCARENOTE ---
Patient is feeling much better, awaiting MRI but states she needs pre-medication before an MRI due to being claustrophobic. TT to Dr. Rain and sneha ordered IV to be given before testing.
--- NOTE | 2024-12-28 11:52 | W.PN.NEURO.1 ---
Today's Communication / Plan
-
dexamethasone 8 mg/day
ASA 81
possible discharge after temporal artery biopsy
outpatient follow up with neuro [employer] and rheumatology
Neuro Assessment/Plan
Assessment
migraine, chronic daily headache, with change in headache quality. given reglan/benadryl.
with temporal artery tenderness, concern for temporal arteritis
ESR 23, CRP 140
methylprednisolone allergy, start decadron 4 mg IV q12 hr, ASA 81
occipital neuralgia, performed occipital nerve block, SPG block at bedside
Plan
decadron 4 mg IV q12 hr, ASA 81
temporal artery biopsy
Subjective/Objective
Subjective Data
Date of Service: December 28, 2024
Today patient says headache is a lot better, and the burning pain in her head/anterior neck/upper chest is resolved
still has numbness in scalp from the occipital nerve blocks, and
Objective Data
Vital Signs
Temp Pulse Resp BP Pulse Ox
36.4 C 87 20 116/83 97
12/28/24 10:53 12/28/24 09:06 12/28/24 10:53 12/28/24 09:06 12/28/24 10:53
Lab Results
12/28/24 03:59
12/28/24 03:59
Sodium 138 mmol/L (135-145) 12/28/24 03:59
Potassium 4.4 mmol/L (3.5-5.1) 12/28/24 03:59
BUN 11 mg/dl (7-17) 12/28/24 03:59
Glucose 145 mg/dl (70-99) H 12/28/24 03:59
Calcium 9.4 mg/dl (8.4-10.2) 12/28/24 03:59
Patient Allergies
methylprednisolone Allergy (Severe, Verified 07/15/24 07:13)
Tongue Swelling
amitriptyline Allergy (Intermediate, Verified 07/15/24 07:13)
Tongue Swelling
metoprolol Allergy (Intermediate, Verified 07/15/24 07:13)
Tongue Swelling
Physical Exam
-
AAOx3, speech clear, language intact
no papilledema
VFF, EOMI, face symmetric
full strength b/l UE/LE
sensation intact to touch, no allodynia
tender right temporal
cervical rotation is symmetric; cervical muscle spasms palpated without subluxation. tender bilateral occipital nerves; radiating on the right
--- NOTE | 2024-12-28 12:56 | CM ---
spoke to pt in room, she is prev indep, lives in a 2 story home with 3 steps to enter with her husb, mother/father, and 2 kids. she denies any dc planning needs or dme's. plan is for dc to home when medically stable.
--- NOTE | 2024-12-28 14:09 | PTCARENOTE ---
MRI of brain and C spine cancelled by neurology, patient awaiting temporal artery bx. Patient is asking why the MRI was cancelled. TT to neuro Dr. Lizarraga who came up and spoke with the patient.
--- NOTE | 2024-12-28 16:31 | W.PN.HOSP.TC ---
Today's Communication/Plan
-
For temporal artery biopsy today
Started on IV steroids by neurology
Possible discharge afterwards
Assessment / Plan
Assessment / Plan
49 years old with history of anxiety, back pain, chondral costal junction syndrome, chronic pain syndrome, epigastric pain, hypertension came to the ER with chest pain and migraine status post occipital nerve block by neurology in the ER and
neurology recommending IV Decadron, MRI brain and cervical spine, right temporal artery biopsy in a.m., n.p.o. after midnight.
Assessment/plan:
Musculoskeletal chest pain
Increased with deep breathing and movement
Patient was at [facility] 12/26/24, troponin was negative.
D-dimer was normal but patient underwent CTA chest which came back negative for acute PE but shows minimal bibasilar segmental atelectasis.
Patient has history of chondrocostal junction syndrome.
Post troponin and D-dimer are negative at this time
Continue lidocaine patches, muscle relaxant, Toradol
Acute headache syndrome.
History of migraine, seen by neurology.
Temporal artery tenderness and concern of temporal arteritis.
ESR 23, CRP 140
Symptoms almost resolved status post occipital nerve block in the ER by neurology.
N.p.o.for right temporal artery biopsy today
Neurology is recommending Decadron 4 mg IV every 12 hours, aspirin 81 mg daily
History of GERD.
Continue omeprazole
History of hypertension.
Continue lisinopril
CODE STATUS: Full code
DVT prophylaxis: Lovenox
Total time spent to see the patient on the floor, examine the patient, review data and lab results, discuss treatment plan with patient, nursing staff around 51 minutes.
Physical Exam
General: No acute distress
HEENT: Normocephalic, Atraumatic, EOMI, MMM
Respiratory: Clear to Auscultation bilaterally
Cardiac: Normal S1/S2, Regular Rate and Rhythm
GI: Soft, Nontender, Nondistended, Normal Bowel Sounds
Extremities: No Clubbing, Cyanosis, or Edema
Neuro: Nonfocal/Grossly Intact
Psych: Calm, Cooperative
Derm: No Visible lesions
Anticipated Discharge: Within 24 hours
Subjective/Interval History
-
Date of Service: December 28, 2024
Patient reports feeling much better. Her bilateral upper chest pain, neck pain, and occipital pain have almost resolved. She denies blurry vision. No fever, no vomiting.
Objective Data
-
Labs:
Laboratory Results
12/28/24
03:59
Sodium 138
Potassium 4.4
Chloride 109 H
Carbon Dioxide 22
BUN 11
Creatinine 0.5 L
Glucose 145 H
Calcium 9.4
Vital Signs:
Vital Signs
Temp Pulse Resp BP Pulse Ox
97.4 F 92 20 121/83 94
12/28/24 15:11 12/28/24 16:00 12/28/24 15:11 12/28/24 15:11 12/28/24 15:11
I&O
12/27/24 12/28/24 12/29/24
06:59 06:59 06:59
Intake Total 50 / 50
Balance 50 / 50
--- NOTE | 2024-12-28 17:30 | PTCARENOTE ---
Patient given IV decadron at 1700, report given to Pennie in vascular lab. Patient is hopeful to go home after procedure, her daughter is waiting in her room.
--- NOTE | 2024-12-28 18:08 | W.SUR.PREOP ---
Pre-Operative Surgical Note
-
I have examined this patient prior to the performance of the scheduled procedure.
The patient's condition is unchanged from the time of the current History and
Physical and the patient is able to undergo the scheduled procedure.
--- NOTE | 2024-12-28 19:06 | OR.RPT ---
Operative Report
Operative Report
Date of Operation: 12/28/2024
Pre Op Diagnosis: Suspected temporal arteritis
Post Op Diagnosis: Suspected temporal arteritis
Procedure: RIGHT temporal artery biopsy
Surgeon: Mike Ordonez III, MD
Patching Machine Operator: Krystle Brown MD PGY1
Anesthesia: Sedation/local
Complications: None
Estimated Blood Loss: Less than 5 cc
History and Indications for Procedure: 49-year-old female with right-sided headaches, temporal tenderness and elevated inflammatory markers raising suspicion for vasculitis. We were asked to perform a temporal artery biopsy.
Procedure in Detail: Myriam Gill was correctly identified and placed supine on the operating table. After adequate induction of anesthesia, the right temporal pulse was palpated. The right temporal region was then shaved. The temporal artery
pulse was marked and then the temporal region was prepped and draped in the usual sterile fashion. Preoperative antibiotics were administered. A time-out procedure was performed with the nursing and anesthesia staff confirming the patient's
identity as well as nature and laterality of the procedure. An incision was made over the marked temporal pulse on the right. Careful sharp dissection and electrocautery were used to dissect down to the temporal artery. Adequate length of specimen
was then sharply dissected out and the proximal and distal artery was ligated with silk ties. The intervening segment of artery was then removed after ligating the proximal and distal ends. The artery segment was identified and then passed off to
the back table to be sent to pathology. Hemostasis was then achieved within the wound bed. The wound was irrigated with warm saline solution. The wound was closed in layers and sterile skin glue was applied. The patient tolerated the procedure
well and was taken to the recovery room in good condition.
Attestation: I was present and responsible for the entire procedure.
Signed:
Mike Ordonez III, MD
Vascular Surgery
[facility]
[2024-12-28] MEDS: SUBLIMAZE 25 MCG IV (19:51)
--- NOTE | 2024-12-28 19:55 | SUR.PHASEI ---
vss, sleeps unless disturbed, when awakened for assess - rates right temporal pain as 8/10. pt's pain acknowleged but noted that she was sound asleep - and then believes pain is 5/10 - medicated with fentanyl as ordered.
--- NOTE | 2024-12-28 20:28 | SUR.PHASEI ---
vss, dizzy after pain meds - though pain lessened. Feels she can sleep now. report to IVU RN and discharge to IVU
[2024-12-28] MEDS: TYLENOL 650 MG PO (21:07)
[2024-12-28] MEDS: LOVENOX 40 MG SC (21:53)
[2024-12-29] VITALS: BP 104/73
--- NOTE | 2024-12-29 00:54 | PTCARENOTE ---
Rec'd pt from OR. Pt sr on TELE monitor with sinus tach with ambulation out of bed, VSS, and AAO*3. Pt reports moderated headache, PRN tylenol given. 1800 dose of sq lovenox not given while in procedure area, given on IVU at 21:53, and DR Ordonez
aware. Pt reported relief at 00:35. Pt updated on plan of care and resting with daughter at bedside. See MAR and flowchart for full pt care and assessment.
[2024-12-29 04:08] VITALS: BMI 22.4
[2024-12-29 04:11] VITALS: BP 114/72
[2024-12-29] MEDS: DECADRON 4 MG IV (05:18)
[2024-12-29 07:44] VITALS: BP 107/81
--- NOTE | 2024-12-29 08:17 | W.PN.VS ---
Today's Communication / Plan
-
Patient seen and examined at bedside with Dr. Mike Ordonez III, below plan reviewed with attending.
Assessment/Plan
-
Assessment: 49-year-old female POD #1 right temporal artery biopsy
Plan:
Follow-up placed in discharge instructions
We will sign off please call with questions or concerns
Subjective Data
-
Date of Service: December 29, 2024
Patient seen and examined at bedside, reports mild and well-tolerated soreness at right temporal artery surgical incision site. Denies nausea, vomiting, fever, and chills.
Objective Data
-
Vital Signs
Temp Pulse Resp BP Pulse Ox
98.0 F 68 16 107/81 97
12/29/24 07:45 12/29/24 07:44 12/29/24 07:45 12/29/24 07:44 12/29/24 07:45
Intake and Output
12/28/24 12/29/24 12/30/24
06:59 06:59 06:59
Intake Total 650 / 650
Balance 650 / 650
Intake:
Oral fluids 550 / 550
IV fluids (Total) 100 / 100
normosol 100 / 100
Other:
Number of approximated MODERATE 3 3
amounts of urine
Lab Results
12/28/24 03:59
12/28/24 03:59
Calcium 9.4 mg/dl (8.4-10.2) 12/28/24 03:59
Magnesium 1.9 mg/dl (1.6-2.3) 12/28/24 03:59
Total Bilirubin 1.0 mg/dl (0.2-1.3) 12/27/24 08:57
AST 19 U/L (14-36) 12/27/24 08:57
ALT 23 U/L (0-35) 12/27/24 08:57
Alkaline Phosphatase 71 U/L (38-126) 12/27/24 08:57
Total Protein 7.7 g/dl (6.3-8.2) 12/27/24 08:57
Albumin 4.5 g/dl (3.5-5.0) 12/27/24 08:57
Physical Exam
-
No apparent distress, resting in bed comfortably
Right temporal surgical incision site CDI, Exofin glue intact, suture line intact and well-approximated, no evidence of edema or hematoma
No tachycardia
No dyspnea on room air
[2024-12-29] MEDS: ASPIR LOW (ENTERIC COATED) 81 MG PO (08:34)
[2024-12-29] MEDS: PROTONIX 40 MG PO (08:35)
[2024-12-29] MEDS: ZESTRIL 10 MG PO (08:35)
--- NOTE | 2024-12-29 09:05 | W.PN.HOSP.TC ---
Today's Communication/Plan
-
Cleared by neurology for discharge today
Assessment / Plan
Assessment / Plan
49 years old with history of anxiety, back pain, chondral costal junction syndrome, chronic pain syndrome, epigastric pain, hypertension came to the ER with chest pain and migraine status post occipital nerve block by neurology in the ER and
neurology recommending IV Decadron, MRI brain and cervical spine, right temporal artery biopsy in a.m., n.p.o. after midnight.
Assessment/plan:
Musculoskeletal chest pain
Increased with deep breathing and movement
Patient was at [facility] 12/26/24, troponin was negative.
D-dimer was normal but patient underwent CTA chest which came back negative for acute PE but shows minimal bibasilar segmental atelectasis.
Patient has history of chondrocostal junction syndrome.
Post troponin and D-dimer are negative at this time
Continue lidocaine patches, muscle relaxant, Toradol
Medically stable for discharge
Acute headache syndrome.
History of migraine, seen by neurology.
Temporal artery tenderness and concern of temporal arteritis.
ESR 23, CRP 140
Symptoms almost resolved status post occipital nerve block in the ER by neurology.
Status post right temporal artery biopsy 12/28
Currently on Decadron 4 mg IV every 12 hours
Neurology recommends discharging on Decadron 8 mg p.o. daily until temporal artery biopsy results returned as negative
Continue aspirin 81 mg daily
Follow-up with rheumatology in the office, and vascular surgery on 01/12/2025 as directed
History of GERD.
Continue omeprazole
History of hypertension.
Continue lisinopril
CODE STATUS: Full code
DVT prophylaxis: Lovenox
Physical Exam
General: No acute distress
HEENT: Normocephalic, EOMI, MMM
Right temporal artery biopsy incision clean/dry/intact
Respiratory: Clear to Auscultation bilaterally
Cardiac: Normal S1/S2, Regular Rate and Rhythm
GI: Soft, Nontender, Nondistended, Normal Bowel Sounds
Extremities: No Clubbing, Cyanosis, or Edema
Neuro: Nonfocal/Grossly Intact
Psych: Calm, Cooperative
Anticipated Discharge: Today
Subjective/Interval History
-
Date of Service: December 29, 2024
Patient complains of pain at her right temporal artery biopsy incision site. She has mild bilateral upper chest pain, and neck pain. Overall, her headache is mild and improved dramatically from admission. No fever, no vomiting.
Objective Data
-
Vital Signs:
Vital Signs
Temp Pulse Resp BP Pulse Ox
98.0 F 68 16 107/81 97
12/29/24 07:45 12/29/24 07:44 12/29/24 07:45 12/29/24 07:44 12/29/24 07:45
I&O
12/28/24 12/29/24 12/30/24
06:59 06:59 06:59
Intake Total 650 / 650
Balance 650 / 650
--- NOTE | 2024-12-29 09:35 | PTCARENOTE ---
Patient resting in bed this morning, feels good, just some mild tenderness at right temporal incision which is clean and dry- closed with surgical glue. Daughter at the bedside. Patient states she was seen by vascular and they will be back later
this morning. Patient ordering breakfast.
--- NOTE | 2024-12-29 11:30 | W.DCSUMMARY ---
Discharge Summary
Discharge Data
Date of Admission: 12/27/24
Date of Discharge: 12/29/24
-
Pending Results: Yes
Additional Pending Results:
Temporal artery biopsy
Hospital Course
Discharge diagnosis:
Occipital neuralgia
Elevated inflammatory markers
Bilateral musculoskeletal chest pain
Essential hypertension
Gastroesophageal reflux disease
Head CT:
FINDINGS:
There is no acute intracranial hemorrhage, large vessel territory infarction or mass. Small calcification along the right parietal convexity, likely benign. The ventricles are normal in size, configuration, and position. . The basal cisterns are
patent. Visualized paranasal sinuses are free of mucosal disease.. Unremarkable appearance of the calvarium.
IMPRESSION:
No acute intracranial abnormality noted.
Consults: Neurology, vascular surgery
Procedures:
12/28/2024 -right temporal artery biopsy
Hospital course:
49-year-old female with a past medical history of migraine headaches, and chondrocostal junction syndrome was admitted for a severe headache secondary to occipital neuralgia and musculoskeletal chest pain. Head CT was negative. Patient was seen in
conjunction with neurology, and received an occipital nerve block in the ER. Patient's headache resolved. Patient was noted to have an elevated CRP of 140, ESR was 23. She denied any vision changes, or blurry vision. She was seen in conjunction
with vascular surgery, and underwent right temporal artery biopsy. She received IV dexamethasone while in the hospital. Neurology recommends she be discharged on oral dexamethasone until her biopsy results return as negative.
Patient also had bilateral upper chest pain that was tender to palpation. She was seen at [facility] on 12/26/2024, troponins were negative. D-dimer was normal, patient underwent chest CTA there, which was negative for acute PE, does show minimal
bibasilar segmental atelectasis. She was treated with lidocaine patches, muscle relaxant, and Toradol.
Patient felt remarkably better. She is medically stable and cleared by neurology for discharge. She needs to follow-up with neurology and vascular surgery in the office. There is suspicion of vasculitis due to her elevated CRP. She has also been
referred to rheumatology outpatient for further workup.
Disposition: Home self-care
Discharge planning: Required 40-minutes
Discharge Plan
-
Patient Disposition: Home (Routine Discharge)
Discharge Diagnosis/Procedures: Occipital neuralgia, elevated inflammatory markers, right temporal artery biopsy, constipation
Condition: Good
Diet: Regular
Activity: No strenuous activity
Driving Restrictions: No driving for 24 hours
Bathing Restrictions: OK to Shower
Activity Restrictions/Additional Instructions:
Neurology recommends you take dexamethasone 8 mg daily until seen by vascular surgery to rule out giant cell arteritis.
Follow-up with vascular surgery as directed.
Follow-up with neurology in the office in 1-2 weeks.
Your elevated inflammatory markers are suspicious for a rheumatological condition.
Follow-up with rheumatology in the office in 1-2 weeks.
Stand Alone Forms: Vascular Surg Discharge Instr
Referrals:
Stephanie Neumann CRNP [Specified Professional Personl] - in one to two weeks
Kenan Herrera MD [Active] - in one to two weeks
Ken Roberts MD [Family Provider] - in one week
Chantel Dejesus CRNP [Specified Professional Personl] - 01/12/25 10:45 am (Vascular surgery follow-up)
Prescriptions:
New
aspirin 81 mg Tablet,Delayed Release (Dr/Ec)
81 mg PO DAILY Qty: 0 0RF
polyethylene glycol 3350 17 gram/dose powder
17 g PO DAILY Qty: 510 0RF
dexamethasone 4 mg tablet
8 mg PO DAILY 21 Days Qty: 42 0RF
Rx Instructions:
Take 2 tablets daily until your temporal biopsy results return as negative.
Continued
esomeprazole magnesium 40 mg Capsule,Delayed Release(Dr/Ec)
40 mg PO DAILY
lisinopril 10 mg Tablet
10 mg PO DAILY
cyanocobalamin (vitamin B-12) 1,000 mcg Tablet
1,000 mcg PO DAILY
therapeutic multivitamin Tablet
1 tab PO DAILY
ibuprofen 200 mg Tablet
600 mg PO DAILYPRN PRN (Reason: mild pain)
Collagen Skin Renewal 30-833.3 mg Tablet
1 tab PO DAILY
Changed
acetaminophen 325 mg Tablet
650 mg PO DAILYPRN PRN (Reason: mild pain) Qty: 0 0RF
Discharge Orders:
Discharge Patient (As Directed); Ordered 12/29/24
Ordered By: Mihai Rain
Care Plan Goals
Care Plan Goals:
Problem: Readiness for enhanced knowledge related to diagnosis and treatment plan
Goal: Understand your diagnosis and treatment plan needs, including medications if applicable.
Instructions: Know your diagnosis, underlying causes and treatment plan options, including medications if applicable. Consult with your health care team to learn about your diagnosis and treatment plan, including medications if applicable.
Discharge Date and Time
Discharge Date/Time: 12/29/24 12:42
Print Language: KITTITIAN
[2024-12-29 11:42] VITALS: BP 133/87
[2024-12-29] MEDS: TYLENOL 650 MG PO (12:05)
--- NOTE | 2024-12-29 12:39 | PTCARENOTE ---
Reviewed discharge instructions with the patient and her daughter and they state their understanding. Patient is aware of follow up appointment and providers to contact for follow up. Patient discharged home with her daughter.
== END 2024-12-29 12:42 | disposition home or self-care (01) ==
LOC: SDS 18:27
PROVIDERS: Emergency Medicine; General Practice; CONSULT PHYSICIAN Psychiatry & Neurology Clinical Neurophysiology; CONSULT PHYSICIAN Surgery; EMERGENCY PHYSICIAN Emergency Medicine; FAMILY PHYSICIAN Internal Medicine
DX: M54.81 Occipital neuralgia (principal); R07.89 Other chest pain; G89.4 Chronic pain syndrome; I10 Essential (primary) hypertension; K21.9 Gastro-esophageal reflux disease without esophagitis; J98.11 Atelectasis; M94.0 Chondrocostal junction syndrome [Tietze]; G43.909 Migraine, unspecified, not intractable, without status migrainosus; R79.82 Elevated C-reactive protein (CRP)
CPT/HCPCS: 37609; 88305; 70450; 71046; 80048; 80053; 82550; 83690; 83735; 84484; 85025; 85027; 85379; 85652; 86140; 88313; 93005; 96372; 96374; 96375; 99285